=== PATIENT | female | born 1990 | race Asian ===

== ENCOUNTER 2016-11-24 23:44 | Emergency (ER) | payer MEDICAID ==
[~2016-11-24] VITALS: Ht 149.9 cm; Wt 541.6 kg
[2016-11-25] MEDS ORDERED: PRENATAL PLUS I1 TAB PO (01:49)
== END 2016-11-25 01:30 | disposition short-term general hospital (02) ==
LOC: ER 23:44
DX: O99.89 Other specified diseases and conditions complicating pregnancy, childbirth and the puerperium (principal); R10.2 Pelvic and perineal pain; O99.019 Anemia complicating pregnancy, unspecified trimester; D64.9 Anemia, unspecified